=== PATIENT | male | born 1990 | race Two or more races ===

== ENCOUNTER 2021-04-16 12:07 | Emergency (ER) | payer MEDICAID, OTHER ==
[~2021-04-16] VITALS: Ht 175.3 cm; Wt 136.0 kg
--- NOTE | 2021-04-16 12:32 | NUR ---
PT. HAS C/O ABD. PAIN X 1 WEEK. PT. STATES THE PAIN IS INCREASING TODAY. PT WITH STEADY GAIT TO ROOM. POSITIONED TO COMFORT. GIRLFRIEND AT BEDSIDE. PT ATTACHED TO MONITORS. VSS. GARZA.
--- NOTE | 2021-04-16 12:38 | NUR ---
NÁGELA JACKSON TO BEDSIDE FOR EVALUATION.
[2021-04-16] MEDS ORDERED: KETOROLAC 30 MG/1 ML ONE (12:54)
[2021-04-16] MEDS ORDERED: ONDANSETRON 2MG/ML, 2ML ONE (12:54)
[2021-04-16 13:00] LABS: BASOPHILS % (AUTO) 1 % (0-1); EOSINOPHILS % (AUTO) 0 % (1-7); LYMPHOCYTES % (AUTO) 10 % (22-44); MEAN CORPUSCULAR HEMOGLOBIN 30.5 pg (27.5-34.5); MEAN CORPUSCULAR HGB CONC 33.2 g/dL (33.2-36.2); MEAN PLATELET VOLUME 7.9 fL (7.4-10.4); MONOCYTES % (AUTO) 4 % (2-9); NEUTROPHILS % (AUTO) 84 % (42-75); PLATELET COUNT 295 x10^3/uL (130-400); RED CELL DISTRIBUTION WIDTH 13.5 % (9.4-14.8)
[2021-04-16] MEDS ORDERED: KETOROLAC 30 MG/1 ML IVPush ONE (13:00)
[2021-04-16] MEDS ORDERED: SODIUM CHLORIDE 0.9% 1,000ML IVBOLUS ONE (13:00)
[2021-04-16] MEDS ORDERED: ONDANSETRON 2MG/ML, 2ML IVPush ONE (13:00)
[2021-04-16] MEDS ORDERED: SODIUM CHLORIDE FLUSH 10ML SYR IVF ONE (13:00)
[2021-04-16 13:11] LABS: ALBUMIN 3.9 g/dL (3.4-5.0); ANION GAP 5 mmol/L (5-15); CHLORIDE 110 mmol/L (98-107)
[2021-04-16 13:14] LABS: ALANINE AMINOTRANSFERASE 106 U/L (12-78); ALKALINE PHOSPHATASE 87 U/L (45-117); BILIRUBIN,TOTAL 0.4 mg/dL (0.2-1.0); CREATININE 0.81 mg/dL (0.7-1.3); TOTAL PROTEIN 8.2 g/dL (6.4-8.2)
[2021-04-16 13:23] LABS: MD SCAN
[2021-04-16] MEDS ORDERED: OMNIPAQUE 350 MG/ML, 100ML BOTTLE ONE (14:00)
[2021-04-16] MEDS ORDERED: MORPHINE SULFATE 4 MG/ML, 1ML IVPush PRN (14:00)
[2021-04-16] MEDS ORDERED: MORPHINE SULFATE 4 MG/ML, 1ML ONE (14:23)
--- NOTE | 2021-04-16 14:32 | NUR ---
PT RESTING COMFORTABLY AWAITING CT READ. GIANNA. GREG.
[2021-04-16 14:36] LABS: MICROSCOPIC NOT IND
[2021-04-16 15:06] VITALS: BP 128/75
--- NOTE | 2021-04-16 15:31 | NUR ---
Patient given discharge instructions and they have confirmed that they understand the instructions. Patient ambulatory with steady gait. NAD, all questions answered appropriately, denies additional needs at this time. No personal belongings left in room after discharge.
== END 2021-04-16 15:32 | disposition home or self-care (01) ==
LOC: ED 12:58
DX: R10.30 Lower abdominal pain, unspecified (principal); R11.2 Nausea with vomiting, unspecified; R19.7 Diarrhea, unspecified
CPT/HCPCS: 36415; 74177; 80053; 81003; 83690; 85025; 99285; J1885; J2405; J7030; Q9967